=== PATIENT | female | born 1990 | race Caucasian/White ===

== ENCOUNTER 2025-02-23 19:05 | Inpatient (IN) ==
[2025-02-23 19:44] LABS: Appearance Urine Clear (Clear); Glucose Urine UA Negative (Negative)
[2025-02-23 19:56] LABS: Hematocrit (blood only) 42.1 % (37.0-47.0); Hemoglobin 13.9 g/dl (12.0-16.0); Immature Granulocytes # (auto) 0.03 K/uL (0.01-0.20); Immature Granulocytes % (auto) 0.3 %; Mean Corpuscular Hemoglobin 28.4 pg (25.0-34.0); Mean Corpuscular Volume 85.9 fL (80.0-100.0); Platelet Count 359 K/uL (130-400); RDW Standard Deviation 50.3 fL (36.4-46.3); Red Blood Count 4.90 M/uL (4.20-5.40); White Blood Count 9.98 K/ul (4.8-10.8)
[2025-02-23 20:11] LABS: Amphetamines+Metham, Urine Neg (Neg); MDMA (Ecstacy), Urine Neg (Neg); Marijuana, Urine Neg (Neg)
[2025-02-23 20:14] LABS: Alanine Aminotransferase 13.0 U/L (7-52); Albumin Globulin Ratio 1.3 (0.9-2); Alkaline Phosphatase 64.0 U/L (34-104); Anion Gap 8.0 (3-11); Bilirubin,Total 0.2 mg/dl (0.2-1.0); Blood Urea Nitrogen 23.0 mg/dl (6-23); Calcium 9.2 mg/dl (8.6-10.3); Carbon Dioxide 24.0 mmol/L (21-32); Chloride 106.0 mmol/L (98-107); Creatinine Clr Calc Pharmacy 97.6 ml/min; Globulin 3.6 gm/dl (2.5-4.0); Glucose 98.0 mg/dl (70-99(Fasting)); Potassium 3.2 mmol/L (3.5-5.1); Sodium 138.0 mmol/L (136-145); Total Protein 8.1 gm/dl (6.0-8.3)
[2025-02-23 20:20] LABS: Acetaminophen < 3 ug/ml (10-30)
[2025-02-23 20:29] LABS: Thyroid Stimulating Hormone 1.183 uIu/ml (0.300-4.500)
[2025-02-23 20:42] LABS: Salicylate 5.3 mg/dl (3.0-30)
--- NOTE | 2025-02-23 22:59 | Emergency Department Note ---
Impression & Plan Depression, Suicidal ideation ED Provider Note ED Provider Note NAME: LEODAN BONDS AGE:34 SEX: Female : 1990 ARRIVES VIA: Private vehicle INFORMANT: Patient ED PROVIDER(s): Clmeentina Reyez DO CHIEF COMPLAINT: Mental health evaluation HPI: This is a 34-year-old female who presents the emergency department for mental health evaluation. Patient is concerned for increased depression and thoughts of suicide recently. She states she has thought about hanging herself which she has previously attempted. Patient has previously had inpatient mental health treatment. She does not currently have any outpatient mental health providers and is not currently taking any medications. She denies any homicidal ideation, paranoia. Admits to mild intermittent auditory hallucinations and visual hallucinations but does not feel they are a problem. PAST MEDICAL HISTORY:See Below PAST SURGICAL HISTORY:See Below FAMILY HISTORY:See Below SOCIAL HISTORY:See Below HOME MEDICATIONS:See Below ALLERGIES:See Below VITALS:See Below PHYSICAL EXAMINATION: GENERAL: alert, well appearing, well nourished, no distress, non-toxic EYE EXAM: normal conjunctiva, PERRL and EOM's grossly intact OROPHARYNX: no exudate, no erythema, lips, buccal mucosa, and tongue normal and mucous membranes are moist NECK: supple, no nuchal rigidity, no adenopathy, non-tender LUNGS: Clear to auscultation. Normal chest wall mechanics, no w/r/r HEART: no murmurs, S1 normal and S2 normal ABDOMEN: abdomen soft, non-tender, normo-active bowel sounds, no masses, no rebound or guarding. SKIN: no rashes, petechiae, orbruising UPPER EXTREMITIES: upper extremities are grossly normal. FROM, nml pulses b/l. LOWER EXTREMITIES: No pitting edema. FROM, nml pulses b/l. NEURO EXAM: Normal sensorium, cranial nerves II-XII grossly intact, normal speech, no facial droop,nogross weakness of arms, no gross weakness of legs. Gross sensation intact. No ataxia. Vital Signs: reviewed and remarkable Differential Diagnosis: mood disorder, suicidal ideation, anxiety, depression, substance abuse, toxidrome, infection, hypoglycemia, electrolyte abnormalities, ICH as well as others were considered. MEDICAL DECISION MAKING: This is a 34-year-old female who presents to the Emergency Department with concern for depression, suicidal ideation with a plan. Patient was afebrile, tachycardic, however other vital signs stable. I do believe her tachycardia was situational. Labs and urine collected and sent per protocol. These were reassuring. Patient, cooperative throughout. She was seen and evaluated by case management. She was referred to [facility] who did come and evaluate her however the psychiatrist does not taking any referrals until the morning. Patient was understanding of this will be monitored overnight. Case signed out pending final disposition. Consultation(s): 2030: Patient seen and evaluated with case management. Please see their additional documentation ER Treatment Provided: See below 0120: Patient signed out pending placement. Patient has been evaluated by [facility] however referrals cannot be excepted until the morning by psychiatry. Diagnostics Interpreted By Me: -Laboratory studies: As stated above and show below. Triage Nursing Note Reviewed Prior/Outside Records Reviewed Past Med/Surg History Problem List Suicidal ideation (Acute) Depression (Acute) No significant past surgical history Social History Smoking Status: Current every day smoker Tobacco Type: E-cigarettes / Vaping Feels Safe at Home: Yes Gender Identity: Female Allergies Allergies Allergy/AdvReac Type Severity Reaction Status Date / Time No Known Allergies Allergy Unverified 02/23/25 19:52 Home Meds Home Medications Medication Instructions Recorded Confirmed No Known Home Medications 02/23/25 02/23/25 Results & Data (ED) Vital Signs Vital Signs - 24 hr 02/23/25 19:09 02/23/25 20:49 Temperature 36.5 C Temperature Source Temporal Artery Scan Pulse Rate 121 H Pulse Rate [Finger] 105 H Pulse Rhythm [Finger] Regular Pulse Strength [Finger] Normal Respiratory Rate 20 18 Respiratory Effort / Characteristics Non-Labored Spontaneous Non-Labored Spontaneous Respiratory Depth Normal Normal Respiratory Pattern Regular Regular Blood Pressure 163/101 H Blood Pressure [Left Arm] 152/95 H Blood Pressure Mean 121 Blood Pressure Mean [Left Arm] 114 Pulse Oximetry 100 98 Oxygen Delivery Method Room Air Room Air Sepsis Recent Fever Within 48 Hours No Sepsis New/Unexplained Change in Mental Status N/A Sepsis Action Taken by Nursing No Action Required Laboratory Data 02/23/25 19:25 02/23/25 19:25 Lab Results 02/23/25 02/23/25 Range/Units 19:19 19:25 WBC 9.98 (4.8-10.8) K/ul RBC 4.90 (4.20-5.40) M/uL Hgb 13.9 (12.0-16.0) g/dl Hct 42.1 (37.0-47.0) % MCV 85.9 (80.0-100.0) fL MCH 28.4 (25.0-34.0) pg MCHC 33.0 (32.0-36.0) g/dL RDW Std Deviation 50.3 H (36.4-46.3) fL RDW Coeff of Jennifer 15.9 H (11.5-14.5) % Plt Count 359 (130-400) K/uL MPV 9.5 (9.4-12.4) fL Immature Gran % (Auto) 0.3 % Neut % (Auto) 65.6 % Lymph % (Auto) 26.4 % King % (Auto) 5.9 % Eos % (Auto) 1.1 % Baso % (Auto) 0.7 % Neut # (Auto) 6.55 H (1.40-6.50) K/uL Lymph # (Auto) 2.63 (1.20-3.40) K/uL [place] # (Auto) 0.59 (0.11-0.59) K/uL Eos # (Auto) 0.11 (0.00-0.50) K/uL Baso # (Auto) 0.07 (0.00-0.20) K/uL Immature Gran # (Auto) 0.03 (0.01-0.20) K/uL Sodium 138 (136-145) mmol/L Potassium 3.2 L (3.5-5.1) mmol/L Chloride 106 (98-107) mmol/L Carbon Dioxide 24 (21-32) mmol/L Anion Gap 8 (3-11) BUN 23 (6-23) mg/dl Creatinine 0.76 (0.6-1.2) mg/dl Est Cr Clr Drug Dosing 97.6 ml/min eGFR 105.38 BUN/Creatinine Ratio 30.3 H (10-20) Glucose 98 (70-99(Fasting)) mg/dl Calcium 9.2 (8.6-10.3) mg/dl Total Bilirubin 0.2 (0.2-1.0) mg/dl AST 18 (13-39) U/L ALT 13 (7-52) U/L Alkaline Phosphatase 64 (34-104) U/L Total Protein 8.1 (6.0-8.3) gm/dl Albumin 4.5 (3.4-5.0) gm/dl Globulin 3.6 (2.5-4.0) gm/dl Albumin/Globulin Ratio 1.3 (0.9-2) TSH 1.183 (0.300-4.500) uIu/ml Urine Color Yellow Urine Appearance Clear (Clear) Urine pH 6.5 (4.5-7.5) Ur Specific [place] 1.003 (1.000-1.030) Urine Protein Negative (Negative) Urine Glucose (UA) Negative (Negative) Urine Ketones Negative (Negative) Urine Blood Negative (Negative) Urine Nitrite Negative (Negative) Urine Bilirubin Negative (Negative) Urine Urobilinogen Negative (Negative) Ur Leukocyte Esterase Negative (Negative) POC Ur Test NEG (NEG) Urine Comment Salicylates 5.3 (3.0-30) mg/dl Urine Opiates Screen Neg (Neg) Ur Methadone, Qual Neg (Neg) Urine Fentanyl Screen Neg (Neg) Acetaminophen < 3 L (10-30) ug/ml Urine Barbiturates Neg (Neg) Ur Phencyclidine (PCP) Neg (Neg) U Amphetamin/Meth Scrn Neg (Neg) MDMA (Ecstasy) Screen Neg (Neg) U Benzodiazepines Scrn Neg (Neg) Ur Cocaine Metabolite Neg (Neg) U Marijuana (THC) Screen Neg (Neg) Ethyl Alcohol mg/dL 32.9 H (<10.0) mg/dl SARS-CoV-2, RNA, NAAT NEGATIVE (NEGATIVE) Discharge Plan Visit Data Chief Complaint: Mental Health Evaluation Stated Complaint: 201 ED Provider: Clementina Reyez Discharge Problem: Depression, Suicidal ideation Patient Disposition: Still a Patient Condition: Good Forms Stand Alone Forms: My [facility] [employer], Suicide Prevention Resources Prescriptions Prescriptions: No Action No Known Home Medications Referrals Referrals: PCP,NO [Primary Care Provider] -
--- NOTE | 2025-02-24 01:24 | Emergency Department Note ---
ED Visit Note Patient is a 201 for suicidal thoughts, increasing anxiety and depression. Patient was signed out to me at change of shift by Dr. Reyez. Patient is currently being evaluated for placement at [facility] patient was signed out to my colleague, Dr. Sosa, in stable condition pending potential placement. .
[2025-02-24] MEDS ORDERED: ALUMINUM/MAGNESIUM SUSP 30 ML UDC PO PRN (07:33)
[2025-02-24] MEDS ORDERED: SODIUM CHLORIDE 0.65% NA SOLN 45 ML (OCEAN) PRN (07:33)
[2025-02-24] MEDS ORDERED: NICOTINE POLACRILEX 2 MG GUM MT PRN (07:33)
[2025-02-24] MEDS ORDERED: BISMUTH SUBSALICYLATE 262 MG CHEW PO PRN (07:33)
[2025-02-24] MEDS ORDERED: MAGNESIUM HYDROXIDE SUSP 30 ML UDC PO PRN (07:33)
[2025-02-24] MEDS ORDERED: NICOTINE 14 MG/24 HR PATCH TD SCH (09:00)
[2025-02-24] MEDS: NICOTINE 14 MG/24 HR PATCH TD SCH (10:22)
[2025-02-24] MEDS: REMOVE NICODERM PATCH SCH (10:24)
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
[2025-02-24] MEDS: ACETAMINOPHEN 325 MG TAB PO PRN (16:58)
[2025-02-24] MEDS: LITHIUM CARBONATE 300 MG TAB PO SCH (21:48)
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
[2025-02-26] MEDS: ATOMOXETINE HCL 40 MG CAPSULE PO SCH (09:49)
--- NOTE | 2025-02-26 11:58 | Psychiatric Progress Note ---
Date of Service February 26, 2025 Impression / Recommendations Impression LEODAN BONDS is a 34-year-old F who currently lives in a home with her poloancee and 4 children, has a history of ADHD and bipolar 1 disorder diagnosed at age 12 and 13 respectively, three prior psychiatric hospitalizations (2 as a minor and 1 in 2021 at [facility]), and one failed suicide attempt via hanging in 2012 (the ligature broke). Leodan was admitted on 02/24/25 07:34 on a 201 voluntary commitment for suicidal ideations with a plan of hanging herself. Diagnostically consistent with bipolar disorder, current episode depressed vs mixed episode given some symptoms of possible abril in the ED with comorbid ADHD and substance use disorder in remission, in the context of recent manic episode and lack of outpatient psychiatric care. Patient remains medication compliant with no perceived adverse reaction. Slight improvement in negative symptoms appearing more motivated and less fatigued. No suicidal ideations since admission. MNPR due to increased lability and irritability in the ED (1) Suicidal ideation: (2) Bipolar affective disorder, current episode mixed, without psychotic features: (3) Depression: (4) ADHD (attention deficit hyperactivity disorder): Plan 02/26/2025: Started on [place] to 300 mg PO BID; [place] Level scheduled for 03/01/2025 Continue Strattera 40 mg PO QD (observe for signs of abril) Continue Wellbutrin XL 150mg PO QD Continue Nicotine 1 patch TD QAM Continue PRN Nicorette 4 mg MT for cravings Continue PRN Vistaril 50 mg PO QHS for insomnia Continue PRN Vistaril 25mg PO Q4H for anxiety Continue Routine PRN medication 02/25/2025: Increase [place] to 300 mg PO BID; [place] Level scheduled for 03/01/2025 Start Strattera 40 mg PO QD (observe for signs of abril) Continue Wellbutrin XL 150mg PO QD Continue Nicotine 1 patch TD QAM Continue PRN Nicorette 4 mg MT for cravings Continue PRN Vistaril 50 mg PO QHS for insomnia Continue PRN Vistaril 25mg PO Q4H for anxiety Continue Routine PRN medication 02/24/2025: The patient was admitted to the [facility] ([facility] mental health unit) on q15 min checks (behavioral with suicide precautions) for safety. The patient will participate in group, recreational, and milieu therapies and will be offered additional individual and family sessions as clinically appropriate. -Start [place] carbonate 300mg HS -Start Wellbutrin XL 150mg tomorrow -SW to explore options for outpatient psychiatrist and therapist Inventory Assets Strengths: supportive relationships, willing to get treatment Needs: safety and stabilization, medication adjustment, additional coping skills, increased outpatient services Suicide Risk Level Suicide Risk Level: High-Moderate (q15 min suicide checks) (SI with plan prior to admission but feels safe in the hospital and feels able to ask for support if needed) Suicide Risk Level Comments: 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 Leodan was admitted on 02/24/25 07:34 on a 201 voluntary commitment for suicidal ideations with a plan of hanging herself. Chief Complaint "a little [depression]". Review of Systems Sleep Information Total Hours of Sleep: 7 Meal Information Percent Meal Consumed - Breakfast: 100 Percent Meal Consumed - Lunch: 100 Percent Meal Consumed - Dinner: 95 Subjective Subjective The patient was found resting in her room and was evaluated on the unit this afternoon. She reported her mood as okay [and] a little better, confirming a little depression. The patient reported preserved sleep and appetite noting, I stayed awake most of the day today. The patient reported experiencing no adverse reactions on her current medication regimen. She identified her observed restlessness (slight rocking) as within her baseline and denied feelings of anxiety. The patient otherwise had no complaints. She reported experiencing no suicidal/homicidal ideations and no auditory/visual hallucinations. Interval progress reviewed with treatment team nursing and social work Physical Exam Psychiatric Orientation: alert and oriented x 3 Apperance: appropriately dressed and appropriately groomed Eye Contact: + poor eye contact Motor Behavior: steady gait and station, no abnormal motor movements and + psychomotor agitation (restless; rocking slightly) Speech: normal rate/rhythm/volume of speech Affect: + constricted affect Mood: + depressed mood ("okay...a little better...a little [depression]") Thought Process: goal directed thought process Thought Content: reality based without delusions Suicidal Thoughts: denies suicidal thoughts, denies suicidal plan and denies suicidal intent Homicidal Thoughts: denies homicidal thoughts Hallucinations: no auditory hallucinations and no visual hallucinations Cognition: recent memory grossly intact, remote memory grossly intact, attention grossly intact and language grossly intact Estimated Intelligence: consistent with education level Insight: + fair insight Judgment: + fair judgement Vital Signs (Past 24 Hours) Last Vital Signs Temp 36.8 C 02/26/25 06:31 Pulse 69 02/26/25 06:32 Resp 16 02/26/25 06:31 BP 121/86 02/26/25 06:32 Pulse Ox 100 02/24/25 08:22 O2 Del Method Room Air 02/24/25 08:22 Results & Data ([facility]) Current Inpatient Medications Current Inpatient Medications: Current Inpatient Medications Acetaminophen (Acetaminophen 325 Mg Tab) 650 mg PO Q4H PRN PRN Reason: Headache or Minor Fever Stop: 03/26/25 07:32 Last Admin: 02/24/25 16:58 Dose: 650 mg Al Hydrox/Mg Hydrox/Simethicone (Aluminum/Magnesium Susp 30 Ml Udc) 30 ml PO Q4H PRN PRN Reason: GI Upset Stop: 03/26/25 07:32 Atomoxetine HCl (Atomoxetine Hcl 40 Mg Capsule) 40 mg PO QAM MARA Stop: 03/28/25 09:29 Last Admin: 02/26/25 09:49 Dose: 40 mg Bismuth Subsalicylate (Bismuth Subsalicylate 262 Mg Chew) 2 tab PO Q30M PRN PRN Reason: Loose Stool/Diarrhea Stop: 03/26/25 07:32 Bupropion HCl (Bupropion Xl 150 Mg Tabcr) 150 mg PO QAM [facility] Stop: 03/27/25 08:59 Last Admin: 02/26/25 09:08 Dose: 150 mg Hydroxyzine HCl (Hydroxyzine Hcl 25 Mg Tab) 50 mg PO HSZ PRN PRN Reason: Insomnia Stop: 03/26/25 07:32 Hydroxyzine HCl (Hydroxyzine Hcl 25 Mg Tab) 25 mg PO Q4H PRN PRN Reason: Anxiety Stop: 03/26/25 07:32 [place] Carbonate ([place] Carbonate 300 Mg Tab) 300 mg PO BID [facility] Stop: 03/28/25 11:44 Magnesium Hydroxide (Magnesium Hydroxide Susp 30 Ml Udc) 30 ml PO DAILY PRN PRN Reason: Constipation Stop: 03/26/25 07:32 Miscellaneous (Remove Nicoderm Patch) 1 each N/A DAILY@0859 [facility] Stop: 03/26/25 08:58 Last Admin: 02/26/25 09:13 Dose: Not Given Nicotine (Nicotine 14 Mg/24 Hr Patch) 1 patch TD QAM [facility] Stop: 03/26/25 09:59 Last Admin: 02/26/25 09:08 Dose: 1 patch Nicotine Polacrilex (Nicotine Polacrilex 2 Mg Gum) 2 piece MT PRN PRN PRN Reason: Nicotine Withdrawal Symptoms Stop: 03/26/25 07:32 Sodium Chloride (Sodium Chloride 0.65% Na Soln 45 Ml ([place])) 1 - 2 sprays NA PRN PRN PRN Reason: Nasal Dryness/Congestion Stop: 03/26/25 07:32 Mental Health & Subst Abuse Tx Psychiatrist Name of Psychiatrist: [facility] (Estephania Russo) Psychiatrist's Date Of Appointment With Psychiatric Provider: 03/08/25 Time of Appointment with Psychiatrist: 2:40PM Psychiatric Appointment Comment: Virtual appt, reminder will be sent to you via text Therapist Name of Therapist: Adan Marrufo Therapist's Date of Therapist Appointment: 03/07/2025 Time of Therapist Appointment: 11:00 am Therapy Appointment Comment: [id number] [place] [id number] Bring ID & Machine [place] Name of Sales Service Technician: N/A
[2025-02-26] MEDS: LITHIUM CARBONATE 300 MG TAB PO SCH (12:18)
--- NOTE | 2025-02-27 08:59 | Psychiatric Progress Note ---
Date of Service February 27, 2025 Impression / Recommendations Impression LEODAN BONDS is a 34-year-old F who currently lives in a home with her poloancee and 4 children, has a history of ADHD and bipolar 1 disorder diagnosed at age 12 and 13 respectively, three prior psychiatric hospitalizations (2 as a minor and 1 in 2021 at [facility]), and one failed suicide attempt via hanging in 2012 (the ligature broke). Leodan was admitted on 02/24/25 07:34 on a 201 voluntary commitment for suicidal ideations with a plan of hanging herself. Diagnostically consistent with bipolar disorder, current episode depressed vs mixed episode given some symptoms of possible abril in the ED with comorbid ADHD and substance use disorder in remission, in the context of recent manic episode and lack of outpatient psychiatric care. Patient remains medication compliant with no perceived adverse reaction and with improvement in negative symptoms. The patient appears more anxious with increased restlessness. Patient wants to be discharged tomorrow. Patient education provided regarding the risks of being discharged without confirming her final lithium level. No suicidal ideations since admission. MNPR due to increased lability and irritability in the ED (1) Suicidal ideation: (2) Bipolar affective disorder, current episode mixed, without psychotic features: (3) Depression: (4) ADHD (attention deficit hyperactivity disorder): Plan 02/27/2025: Continue [place] 300 mg PO BID; [place] Level scheduled for 03/01/2025 02/26/25 [place] level pending Continue Strattera 40 mg PO QD (observe for signs of abril) Continue Wellbutrin XL 150mg PO QD Continue Nicotine 1 patch TD QAM Continue PRN Nicorette 4 mg MT for cravings Continue PRN Vistaril 50 mg PO QHS for insomnia Continue PRN Vistaril 25mg PO Q4H for anxiety Continue Routine PRN medication 02/26/2025: Started on [place] to 300 mg PO BID; [place] Level scheduled for 03/01/2025 Continue Strattera 40 mg PO QD (observe for signs of abril) Continue Wellbutrin XL 150mg PO QD Continue Nicotine 1 patch TD QAM Continue PRN Nicorette 4 mg MT for cravings Continue PRN Vistaril 50 mg PO QHS for insomnia Continue PRN Vistaril 25mg PO Q4H for anxiety Continue Routine PRN medication 02/25/2025: Increase [place] to 300 mg PO BID; [place] Level scheduled for 03/01/2025 Start Strattera 40 mg PO QD (observe for signs of abril) Continue Wellbutrin XL 150mg PO QD Continue Nicotine 1 patch TD QAM Continue PRN Nicorette 4 mg MT for cravings Continue PRN Vistaril 50 mg PO QHS for insomnia Continue PRN Vistaril 25mg PO Q4H for anxiety Continue Routine PRN medication 02/24/2025: The patient was admitted to the [facility] ([facility] mental health unit) on q15 min checks (behavioral with suicide precautions) for safety. The patient will participate in group, recreational, and milieu therapies and will be offered additional individual and family sessions as clinically appropriate. -Start [place] carbonate 300mg HS -Start Wellbutrin XL 150mg tomorrow -SW to explore options for outpatient psychiatrist and therapist Inventory Assets Strengths: supportive relationships, willing to get treatment Needs: safety and stabilization, medication adjustment, additional coping skills, increased outpatient services Suicide Risk Level Suicide Risk Level: High-Moderate (q15 min suicide checks) (SI with plan prior to admission but feels safe in the hospital and feels able to ask for support if needed) Suicide Risk Level Comments: 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 Leodan was admitted on 02/24/25 07:34 on a 201 voluntary commitment for suicidal ideations with a plan of hanging herself. Chief Complaint "I would like to be discharged tomorrow" Review of Systems Sleep Information Total Hours of Sleep: 7.75 Meal Information Percent Meal Consumed - Breakfast: 100 Percent Meal Consumed - Lunch: 90 Percent Meal Consumed - Dinner: 100 Subjective Subjective Patient was evaluated on the unit this afternoon she reported her mood as "good... I feel stable... A little anxious to return home," with preserved sleep and appetite. She expressed no desire to be discharged home tomorrow. Patient education was provided regarding her voluntary status. Recommendations were provided that she remain until Tuesday until her lithium level is drawn to ensure that she is not at risk for lithium toxicity. It was also noted that her lithium level is currently subtherapeutic and there is no confirmation that she has adequate coverage to prevent another manic episode. Patient expressed continued desire to be discharged tomorrow stating, "I have been on it before... Not concerned." She vocalized insight into her need for continued medication management and compliance with outpatient appointments. She identified her 's drinking habits as a significant stressor, and contributed to her manic episode. "Also it is always stressful with the kids going back to school. That might have been part of it," she stated. Patient had no further concerns. She reported no adverse reactions to the medications. She reported experiencing no suicidal/homicidal ideation and auditory/visual hallucinations. Interval progress reviewed with [treatment team] [nursing and social work] Physical Exam Psychiatric Orientation: alert and oriented x 3 Apperance: appropriately dressed and appropriately groomed Eye Contact: good eye contact and + poor eye contact Motor Behavior: steady gait and station, no abnormal motor movements and + psychomotor agitation (increased restlessness; rocking, shifting positions ) Speech: normal rate/rhythm/volume of speech Affect: + depressed affect, + anxious affect and + constricted affect Mood: + anxious mood; no depressed mood "good... I feel stable... A little anxious to return home," Thought Process: goal directed thought process Thought Content: reality based without delusions Suicidal Thoughts: denies suicidal thoughts, denies suicidal plan and denies suicidal intent Homicidal Thoughts: denies homicidal thoughts Hallucinations: no auditory hallucinations and no visual hallucinations Cognition: recent memory grossly intact, remote memory grossly intact, attention grossly intact and language grossly intact Estimated Intelligence: consistent with education level Insight: + fair insight Judgment: + fair judgement Vital Signs (Past 24 Hours) Last Vital Signs Temp 36.7 C 02/27/25 06:32 Pulse 86 02/27/25 06:33 Resp 16 02/27/25 06:32 BP 105/60 02/27/25 06:33 Pulse Ox 100 02/24/25 08:22 O2 Del Method Room Air 02/24/25 08:22 Results & Data ([facility]) Laboratory Results Laboratory Results - last 24 hr 02/27/25 07:26 [place] Pending Current Inpatient Medications Current Inpatient Medications: Current Inpatient Medications Acetaminophen (Acetaminophen 325 Mg Tab) 650 mg PO Q4H PRN PRN Reason: Headache or Minor Fever Stop: 03/26/25 07:32 Last Admin: 02/24/25 16:58 Dose: 650 mg Al Hydrox/Mg Hydrox/Simethicone (Aluminum/Magnesium Susp 30 Ml Udc) 30 ml PO Q4H PRN PRN Reason: GI Upset Stop: 03/26/25 07:32 Atomoxetine HCl (Atomoxetine Hcl 40 Mg Capsule) 40 mg PO QAM [facility] Stop: 03/28/25 09:29 Last Admin: 02/27/25 08:20 Dose: 40 mg Bismuth Subsalicylate (Bismuth Subsalicylate 262 Mg Chew) 2 tab PO Q30M PRN PRN Reason: Loose Stool/Diarrhea Stop: 03/26/25 07:32 Bupropion HCl (Bupropion Xl 150 Mg Tabcr) 150 mg PO QAM [facility] Stop: 03/27/25 08:59 Last Admin: 02/27/25 08:20 Dose: 150 mg Hydroxyzine HCl (Hydroxyzine Hcl 25 Mg Tab) 50 mg PO HSZ PRN PRN Reason: Insomnia Stop: 03/26/25 07:32 Hydroxyzine HCl (Hydroxyzine Hcl 25 Mg Tab) 25 mg PO Q4H PRN PRN Reason: Anxiety Stop: 03/26/25 07:32 [place] Carbonate ([place] Carbonate 300 Mg Tab) 300 mg PO BID [facility] Stop: 03/28/25 11:44 Last Admin: 02/27/25 08:21 Dose: 300 mg Magnesium Hydroxide (Magnesium Hydroxide Susp 30 Ml Udc) 30 ml PO DAILY PRN PRN Reason: Constipation Stop: 03/26/25 07:32 Miscellaneous (Remove Nicoderm Patch) 1 each N/A DAILY@0859 [facility] Stop: 03/26/25 08:58 Last Admin: 02/26/25 09:13 Dose: Not Given Nicotine (Nicotine 14 Mg/24 Hr Patch) 1 patch TD QAM [facility]A Stop: 03/26/25 09:59 Last Admin: 02/27/25 08:21 Dose: 1 patch Nicotine Polacrilex (Nicotine Polacrilex 2 Mg Gum) 2 piece MT PRN PRN PRN Reason: Nicotine Withdrawal Symptoms Stop: 03/26/25 07:32 Sodium Chloride (Sodium Chloride 0.65% Na Soln 45 Ml (Coal)) 1 - 2 sprays NA PRN PRN PRN Reason: Nasal Dryness/Congestion Stop: 03/26/25 07:32 Mental Health & Subst Abuse Tx Psychiatrist Name of Psychiatrist: [facility] (Estephania Russo) Psychiatrist's Date Of Appointment With Psychiatric Provider: 03/08/25 Time of Appointment with Psychiatrist: 2:40PM Psychiatric Appointment Comment: Virtual appt, reminder will be sent to you via text Therapist Name of Therapist: Adan Marrufo Therapist's Date of Therapist Appointment: 03/07/2025 Time of Therapist Appointment: 11:00 am Therapy Appointment Comment: [phone] [place] [id number] Bring ID & Assistant Fitness Manager Name of Auger Operator: N/A
--- NOTE | 2025-02-28 10:11 | Discharge Summary ---
Date of Service February 28, 2025 History of Present Illness The patient presented to the ED at the behest of her sister and fiance after endorsing suicidal thoughts with a plan of hanging herself. "Two days before I came here is when I started feeling really bad," she stated, reporting significant suicidal ideation. She reported a history of manic and depressive symptoms usually lasting 1 to 3 weeks. Her manic symptoms are usually associated with grandiosity, insomnia with preserved energy (can go two days without sleep or only get 2-3 hours of sleep), impulsivity/recklessness (w/ excessive spending), hypersexuality, mood lability, irritability, and poor focus. "I feel good I do not need much sleep at all, appetite for sex is a lot higher, I usually spend a lot more money... The main problem right now is focus.I get frustrated and get mad at my kids, which is not their fault, she e xplained. These episodes of abril usually last 1 to 2 weeks followed by a period of depression lasting about 5 days and associated with symptoms of amotivation, low energy, hypersomnia, anhedonia, isolated behavior, excessive guilt, feelings of hopelessness, and suicidal ideations. These symptoms have significantly impacted her ability to work and manage her household. 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 She has not worked for over a year, noting that she quit her last job due to a level term as she found embarrassing and was fired from the job prior due to tardiness and an inability to complete tasks. Patient reported no history of unmanageable anxiety, auditory/visual hallucinations, and/or paranoia/delusions. Per the patient, the only effective treatment that has been effective was a regimen of lithium, Wellbutrin, methylphenidate, and nightly Seroquel. This was previously prescribed by Dr. Mckeon whose practice close down in early 2021. The patient reported medication trials of Thorazine, Vyvanse, Depakote, (ADRs), Concerta (ADRs), Zoloft (ineffective), Vistaril (cognitive ADRs cloudy thoughts.), Effexor (intrusive thoughts; trialed in 2023). The patient described her mood as alright at the time of this encounter, noting slight improvements in energy and motivation since presenting to the ED. She's noticed no adverse reaction to the Wellbutrin and lithium started while in the ED. Additional history per ED CM on 02/23/2025: "Colleen presents to the Emergency Department seeking mental health evaluation. She notes that she is diagnosed with bipolar disorder and ADHD. Her speech is pressured and she appears a bit jittery. She notes a long history of mental health concerns and states that she was first inpatient in 2001 at 12 years old. Colleen notes that she has been completely off her medication for over a year as she didnt like how they made her feel and didnt feel they were effective. She did not re-establish with psychiatry as she feels no one listens to her. She was formerly following with [facility] and was pleased with them, but they closed down. She was last inpatient in 2021. Colleen endorses suicidal ideation with a plan to hang herself. She has history of suicide attempt by hanging but was unsuccessful as the rope broke. She states, I couldnt even do that right. She notes that her mental health symptoms come and go in severity. She states that she doesnt focus so much on the plan that she chooses to complete suicide, but more so focuses on the relief that completing suicide will bring to her. She has four children, three of whom are minors in her home. She states that she has felt like if she is going to kill herself, she should do it soon as she feels it will be less traumatic on her kids while they are young and she also feels children are more readily adopted from the foster care system if they are young. She further shares that she has no family left who cares about her. Colleen notes that her sleep has been all over the place and provides, Not to sound arrogant or anything but I dont need what everyone else needs. Maybe Im just different. She notes that she can function on very little sleep and still feels energized. She can go several days to weeks like this but then notes that she crashes and sleeps for a whole day. Her appetite is stable, though she does forget to eat sometimes. She is unemployed but does not note this as a stressor. She states that she has trouble working like regular people and goes in cycles where is stable at a place of employment until ultimately she loses that job. She lives with her fianc whom she describes as an alcoholic with his own issues. Colleen further shares that a significant anniversary occurred on January 25 in 2011 on this day, her father . In 2013 on that day, her mother completed suicide. She notes this is always hard for her. Colleen denies chronic medical conditions. She denies HI or hx of violence or aggression. When asked about auditory or visual hallucinations, she feels as if sometimes she hears voices that are non-command in nature saying things like hey. She also sometimes sees things in the periphery of her vision that are not there, like a mouse, a ghost, or shadows. Colleen is willing for inpatient treatment. " Psychiatric ROS notable for history of abril and self-harm as an adolescent. Trauma history. She denies any history of symptoms of psychosis, OCD nor eating disorder. Physical Exam Psychiatric Orientation: alert and oriented x 3 Apperance: appropriately dressed and appropriately groomed Eye Contact: good eye contact and + poor eye contact Motor Behavior: steady gait and station, no abnormal motor movements and + psychomotor agitation (increased restlessness; rocking, shifting positions ) Speech: normal rate/rhythm/volume of speech Affect: + anxious affect and + constricted affect; no depressed affect Mood: no depressed mood and no anxious mood "Good" Thought Process: goal directed thought process Thought Content: reality based without delusions Suicidal Thoughts: denies suicidal thoughts, denies suicidal plan and denies suicidal intent Homicidal Thoughts: denies homicidal thoughts Hallucinations: no auditory hallucinations and no visual hallucinations Cognition: recent memory grossly intact, remote memory grossly intact, attention grossly intact and language grossly intact Estimated Intelligence: consistent with education level Insight: + fair insight Judgment: + fair judgement Vital Signs (Past 24 Hours) Last Vital Signs Temp 36.8 C 02/28/25 10:00 Pulse 80 02/28/25 10:00 Resp 16 02/28/25 10:00 BP 118/74 02/28/25 10:00 Pulse Ox 100 02/28/25 10:00 O2 Del Method Room Air 02/24/25 08:22 Principal Diagnosis Bipolar 1 disorder, mixed type, most recent episode depressed Psychiatric Data See daily stay summary. In short, safety was maintained and the patient was cooperative with care. Medication changes included starting Wellbutrin XL 150 mg daily, atomoxetine 40 mg daily (with plan to increase to 60 mg after 7 days), and lithium 300 mg twice a day. and they tolerated this well. A family session was held and safety plan was completed prior to discharge. The patient was informed of the risk of leaving without confirming serum lithium level. Day of Discharge Assessment Today the patient voices readiness for discharge. They note improvement in mood and deny thoughts to harm self or others. Thoughts remain organized and they are improved from admission. There is no evidence of abril. They agree to take mediations as prescribed and keep follow-up appointments. They were informed of the risk of leaving without confirming serum lithium level. They are stable for discharge to outpatient level of care. Transition of Care Transition Of Care Record: was reviewed with the patient Advance Directives Advance Directives Information Provided: Yes Advance Directives: No Mental Health Advance Directive: No Advance Directives on File: No Living Will: No Power of Serologist: No Advance Directives Reason:: Declines as Mental Health Visit. Suicide Risk Level Suicide Risk Level Comments: Low-Moderate: Low risk due to resolved abril in the absence of suicidal ideation. Patient contracted to safety agreeing to comply with safety plan should they develop suicidal plan, intent or feel unable to remain safe. 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) Stable Relationships: Yes Supportive Family: Yes Discharge Data Lab Results 02/23/25 02/23/25 02/27/25 19:19 19:25 07:26 WBC 9.98 RBC 4.90 Hgb 13.9 Hct 42.1 MCV 85.9 MCH 28.4 MCHC 33.0 RDW Std Deviation 50.3 H RDW Coeff of Jennifer 15.9 H Plt Count 359 MPV 9.5 Immature Gran % (Auto) 0.3 Neut % (Auto) 65.6 Lymph % (Auto) 26.4 [place] % (Auto) 5.9 Eos % (Auto) 1.1 Baso % (Auto) 0.7 Neut # (Auto) 6.55 H Lymph # (Auto) 2.63 [place] # (Auto) 0.59 Eos # (Auto) 0.11 Baso # (Auto) 0.07 Immature Gran # (Auto) 0.03 Sodium 138 Potassium 3.2 L Chloride 106 Carbon Dioxide 24 Anion Gap 8 BUN 23 Creatinine 0.76 Est Cr Clr Drug Dosing 97.6 eGFR 105.38 BUN/Creatinine Ratio 30.3 H Glucose 98 Calcium 9.2 Total Bilirubin 0.2 AST 18 ALT 13 Alkaline Phosphatase 64 Total Protein 8.1 Albumin 4.5 Globulin 3.6 Albumin/Globulin Ratio 1.3 TSH 1.183 Urine Color Yellow Urine Appearance Clear Urine pH 6.5 Ur Specific [place] 1.003 Urine Protein Negative Urine Glucose (UA) Negative Urine Ketones Negative Urine Blood Negative Urine Nitrite Negative Urine Bilirubin Negative Urine Urobilinogen Negative Ur Leukocyte Esterase Negative POC Ur Test NEG Urine Comment Salicylates 5.3 Urine Opiates Screen Neg Ur Methadone, Qual Neg Urine Fentanyl Screen Neg Acetaminophen < 3 L Urine Barbiturates Neg Ur Phencyclidine (PCP) Neg U Amphetamin/Meth Scrn Neg MDMA (Ecstasy) Screen Neg U Benzodiazepines Scrn Neg Norris 0.4 L Ur Cocaine Metabolite Neg U Marijuana (THC) Screen Neg Ethyl Alcohol mg/dL 32.9 H SARS-CoV-2, RNA, NAAT NEGATIVE Hospital Course (1) Suicidal ideation: (2) Bipolar affective disorder, current episode mixed, without psychotic features: (3) Depression: (4) ADHD (attention deficit hyperactivity disorder): Plan 02/28/2025: Continue Norris 300 mg PO BID; Norris Level scheduled for 03/01/2025 Recommend completing outpatient lithium level Continue Strattera 40 mg PO QD (observe for signs of abril) Continue Wellbutrin XL 150mg PO QD Continue Nicotine 1 patch TD QAM Continue PRN Vistaril 25mg PO Q4H for anxiety 02/27/2025: Continue Norris 300 mg PO BID; Norris Level scheduled for 03/01/2025 02/26/25 Norris level pending Continue Strattera 40 mg PO QD (observe for signs of abril) Continue Wellbutrin XL 150mg PO QD Continue Nicotine 1 patch TD QAM Continue PRN Nicorette 4 mg MT for cravings Continue PRN Vistaril 50 mg PO QHS for insomnia Continue PRN Vistaril 25mg PO Q4H for anxiety Continue Routine PRN medication 02/26/2025: Started on Norris to 300 mg PO BID; Norris Level scheduled for 03/01/2025 Continue Strattera 40 mg PO QD (observe for signs of abril) Continue Wellbutrin XL 150mg PO QD Continue Nicotine 1 patch TD QAM Continue PRN Nicorette 4 mg MT for cravings Continue PRN Vistaril 50 mg PO QHS for insomnia Continue PRN Vistaril 25mg PO Q4H for anxiety Continue Routine PRN medication 02/25/2025: Increase Norris to 300 mg PO BID; Norris Level scheduled for 03/01/2025 Start Strattera 40 mg PO QD (observe for signs of abril) Continue Wellbutrin XL 150mg PO QD Continue Nicotine 1 patch TD QAM Continue PRN Nicorette 4 mg MT for cravings Continue PRN Vistaril 50 mg PO QHS for insomnia Continue PRN Vistaril 25mg PO Q4H for anxiety Continue Routine PRN medication 02/24/2025: The patient was [facility] on q15 min checks (behavioral with suicide precautions) for safety. The patient will participate in group, recreational, and milieu therapies and will be offered additional individual and family sessions as clinically appropriate. -Start Norris carbonate 300mg HS -Start Wellbutrin XL 150mg tomorrow -SW to explore options for outpatient psychiatrist and therapist Mental Health & Subst Abuse Tx Psychiatrist Name of Psychiatrist: [facility] (Estephania Russo) Psychiatrist's Date Of Appointment With Psychiatric Provider: 03/08/25 Time of Appointment with Psychiatrist: 2:40PM Psychiatric Appointment Comment: Virtual appt, reminder will be sent to you via text Psychiatrist Release of Information: Obtained, Reviewed and Signed Therapist Name of Therapist: Adan Marrufo Therapist's Date of Therapist Appointment: 03/07/2025 Time of Therapist Appointment: 11:00 am Therapy Appointment Comment: [id number] [place] [id number] Bring ID & Insurance Therapist Release of Information: Obtained, Reviewed and Signed Risk Manager Name of Risk Manager: N/A Post Discharge Appointments Contact Information Discharge Discharge Address: [address] [place] [address] [place] [address] Discharge Plan Discharge Items Patient Disposition: Home - Self-Care Reason For Visit: UNSPECIFIED MOOD DISORDER Discharge Diagnosis: Bipolar I Disorder, mixed type, most recent episode depressed Condition on Discharge: Good Activity: Resume your previous activity Non-emergency contact: Primary Care Provider and Psychiatrist Call non-emergency contact if: you have any medication questions and your symptoms worsen Follow-up/Referrals: PCP,NO [Primary Care Provider] - Diet: Regular Addtl Attending Provider Instructions: Continue current medication regimen as directed. Seek emergent care if you develop symptoms of lithium toxicity such as tremors, nausea/vomiting/diarrhea, confusion, dizziness, ataxia (poor balance), slurred speech, weakness, and/or blurred vision. Pending Studies at Discharge: No Stand-Alone Forms: My [employer], Smoking Cessation Medications and DC Order Prescriptions: New nicotine 7 mg/24 hr Patch 24 Hour 1 patch transdermal QAM Qty: 7 0RF atomoxetine 40 mg Capsule 40 mg PO QAM Qty: 14 0RF bupropion HCl 150 mg Tablet Extended Release 24 Hr 150 mg PO QAM Qty: 14 0RF hydroxyzine HCl 25 mg Tablet 25 mg PO Q4H PRN (Reason: anxiety) Qty: 14 0RF lithium carbonate 300 mg Tablet 300 mg PO BID Qty: 28 0RF Discharge Orders: Discharge Order (Routine); Ordered 02/28/25 Ordered By: Hunter Ardon Admission Data Admit Date/Time: 02/24/25 07:34 Attending Provider: Janiya Bonner Admit Provider: Janiya Bonner Primary Care Provider: PCP,NO Other Interventions: Discharge Summary Assessment (RN) Last Done: 02/28/25 10:00 Coding Level of Care Code 67117 D/C day mgmt > 30 min Diagnoses Suicidal ideation R45.851 Bipolar affective disorder, current episode mixed, without psychotic features F31.60 Depression F32.A ADHD (attention deficit hyperactivity disorder) F90.9
== END 2025-02-28 10:38 | disposition home or self-care (01) | DRG 885 ==
LOC: ED 19:05 → 3S 02-24 07:34